=== PATIENT | female | born 1980 | race Caucasian/White ===

== ENCOUNTER 2022-11-29 17:20 | Outpatient (CLI) | payer BC, SELFPAY | END 2022-11-29 17:21 | disposition home or self-care (01) | LOC: AMB 12-02 01:45 | PROVIDERS: Visit Provider Family Medicine | DX: R41.82 Altered mental status, unspecified (principal) | CPT/HCPCS: A0425; A0429 ==

== ENCOUNTER 2022-11-29 17:53 | Emergency (ER) | payer BC, SELFPAY ==
[2022-11-29 18:09] VITALS: BP 126/89; PULSE 97; RESP 20; TEMP 36.9; O2SAT 97; BMI 32.3
--- NOTE | 2022-11-29 19:02 | ED.GENADULT ---
HPI - General Adult General Chief complaint: Psychiatric Problem/Disorder Stated complaint: Mental Health Time Seen by Provider: 11/29/22 18:44 History of Present Illness HPI narrative: This 42-year-old female comes in for evaluation. 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 She was off of the truck and wanting to smoke a cigarette so she stepped away significantly from the truck in order to be safe. She was just finished refilling at [employer] for a customer that she did not know. She did talk with him briefly then went to walk away from the truck on or to smoke a cigarette. Someone observe this and thought she was wandering aimlessly and called to have her brought in for evaluation. She does have bipolar disease and is currently taking several psychotropic medications. She does not like to take her pills but has been doing so. She did receive an intramuscular injection of Abilify in order not to have to remember to take the pills. She got a rash after this and has been on prednisone for 3 weeks now and states that she is now discontinuing it. She denies having any auditory or visual hallucinations. She does not feel unsafe to herself. She is very cooperative and willing to undergo any assessment necessary but states that she does not feel unsafe and explains her circumstances accurately and convincingly. She denies using any street drugs or alcohol. Related Data Home Medications Medication Instructions Recorded Confirmed aripiprazole 10 mg tablet (Abilify) 10 mg PO DAILY 11/29/22 11/29/22 lorazepam 1 mg tablet (Ativan) 1 mg PO DAILY PRN 11/29/22 11/29/22 trazodone 50 mg tablet 25 mg PO DAILY 11/29/22 11/29/22 Allergies Allergy/AdvReac Type Severity Reaction Status Date / Time aripiprazole [From Abilify] Allergy Verified 11/29/22 18:16 Review of Systems Status of ROS: Reports: 10 or more systems reviewed and unremarkable except as noted in History and below Narrative: Constitutional: No fevers, no weight gain or loss. Eyes: No discharge. No vision changes. HENT: No congestion, no sore throat, no ear pain. Cardiovascular: No chest pain, no palpitations. Respiratory: No shortness of breath, no wheezes, no cough. Gastrointestinal: No abdominal pain, no vomiting, no diarrhea. Genitourinary: No dysuria, no hematuria. Musculoskeletal: Normal range of motion. Skin: No rashes, no pruritis. Neurological: No dizziness, weakness, sensory change, speech change. Endo/Heme/Allergies: No bruising or bleeding. No polydipsia. Pysch: no suicidality, no anxiety, no insomnia. She states that she has been sleeping okay but little less soundly because of prednisone. All other systems reviewed and are negative. Exam Narrative: Exam Narrative: Constitutional: Well-developed, well-nourished, no acute distress. HEENT: Normocephalic, atraumatic. Neck: Normal range of motion. Nontender. Supple. Heart: Intact distal pulses. Lungs: No chest discomfort. No wheezes, rhonchi, or rales. Abdomen: Nontender. Back: Normal range of motion. Extremities: Normal range of motion. No injury. Skin: Intact. No rash. Warm. No erythema or pallor. Neurologic: No altered sensation. No weakness. Alert and oriented. Psychiatric: This patient denies suicidality. She does not have any thoughts or plans to harm herself and does not feel unsafe at all. Nursing notes and vitals signs are reviewed. Const: Vital Signs, click to edit/add: Vital Signs - 24 hr 11/29/22 18:09 Temperature 98.5 F Pulse Rate [Pulse Oximeter] 97 Respiratory Rate 20 Blood Pressure [Le ft Upper Arm] 126/89 Pulse Oximetry 97 Oxygen Delivery Me thod Room Air Course Vital Signs Vital signs: Initial Vital Signs Temperature 98.5 F 11/29/22 18:09 Temperature Source Temporal Artery Scan 11/29/22 18:09 Pulse Rate 97 11/29/22 18:09 Respiratory Rate 20 11/29/22 18:09 Blood Pressure 126/89 11/29/22 18:09 Blood Pressure Mean 101 11/29/22 18:09 Blood Pressure Position Sitting 11/29/22 18:09 Pulse Oximetry 97 11/29/22 18:09 Oxygen Delivery Method 11/29/22 18:09 Vital Signs Temperature 98.5 F 11/29/22 18:09 Pulse Rate 97 11/29/22 18:09 Respiratory Rate 20 11/29/22 18:09 Blood Pressure 126/89 11/29/22 18:09 Pulse Oximetry 97 11/29/22 18:09 Oxygen Delivery Method 11/29/22 18:09 Temperature 98.5 F 11/29/22 18:09 Pulse Rate 97 11/29/22 18:09 Respiratory Rate 20 11/29/22 18:09 Blood Pressure 126/89 11/29/22 18:09 Pulse Oximetry 97 11/29/22 18:09 Oxygen Delivery Method 11/29/22 18:09 Medical Decision Making MDM Narrative Medical decision making narrative: This patient comes in for psychiatric evaluation. A friend is accompanying her who knows her well. The patient denies any suicidal thoughts or plans and does not at all feel unsafe. She is currently taking her medications. She is willing to be cooperative in any way but feels like she is okay to go and the friend that is with her is willing to accompany her to her place. She states that she has been doing well on her job and does not have any new symptoms of any concern for her. I did offer labs, imaging, and tele health mental assessment. In a process of shared decision making with the patient and her friend it seems okay for her to resume her current plans. She will follow-up with her primary physician and knows how to return if needed. Discharge Plan Discharge Clinical Impression: Bipolar disorder Patient Disposition: Home, Self-Care Condition: Stable Additional Instructions: Continue current plans. Follow up with MD to review medications. Return if recurrent or worsening symptoms happen. Prescriptions: No Action lorazepam [Ativan] 1 mg tablet 1 mg PO DAILY PRN trazodone 50 mg tablet 25 mg PO DAILY aripiprazole [Abilify] 10 mg tablet 10 mg PO DAILY Stand Alone Forms: [employer] Mobile Info Instructions
[2022-11-29 19:22] VITALS: PULSE 100; O2SAT 97
== END 2022-11-29 19:40 | disposition home or self-care (01) ==
LOC: ED 19:39
PROVIDERS: Emergency Provider Emergency Medicine Emergency Medical Services
DX: F31.9 Bipolar disorder, unspecified (principal)
CPT/HCPCS: 99283; 99284